=== PATIENT | female | born 1955 | race African-American/Black ===

== ENCOUNTER 2017-08-25 16:08 | Emergency (ER) | payer MEDICAID, MEDICARE ==
[~2017-08-25] VITALS: Ht 165.1 cm; Wt 70.0 kg
[2017-08-25] MEDS ORDERED: ALBU2SYR PO (16:14)
[2017-08-25] MEDS ORDERED: IPRATROPIUM/ALBUTEROL 0.5-3(2.5)MG/3ML NEB HHN ONE ×2 (17:15→18:00)
[2017-08-25 17:30] LABS: CHLORIDE 96 mEq/L (98-107); HEMATOCRIT. 30.1 % (36.0-48.0); MEAN CORPUSCULAR HEMOGLOBIN 26.8 pg (28.0-32.0); MEAN CORPUSCULAR VOLUME 80.3 fL (81.0-99.0); MEAN PLATELET VOLUME 8.7 fl (7.4-10.4); PLATELET 231 x1000/uL (130-400); RED BLOOD CELL COUNT 3.74 mill/uL (4.2-5.4); RED CELL DISTRIBUTION WIDTH 14.9 % (11.6-14.6)
[2017-08-25 17:44] LABS: CARBON DIOXIDE 28 mEq/L (21-32)
[2017-08-25 17:53] LABS: PLATELET ESTIMATE NORMAL
[2017-08-25] MEDS ORDERED: POTASSIUM CHLORIDE 20MEQ TABLET SR PO ONE (18:00)
[2017-08-25 19:14] VITALS: BP 127/67
== END 2017-08-25 19:28 | disposition home or self-care (01) ==
LOC: ER 16:08
DX: J06.9 Acute upper respiratory infection, unspecified (principal); J45.909 Unspecified asthma, uncomplicated; I10 Essential (primary) hypertension; E11.9 Type 2 diabetes mellitus without complications
CPT/HCPCS: 36415; 71045; 80053; 85025; 87804; 99285; J7620